=== PATIENT | female | born 1960 | race Two or more races ===

== ENCOUNTER → 2024-01-25 | Outpatient (CLI) | payer BC, SELFPAY ==
[2024-01-25 08:29] LABS: Basophils % (Auto) 1 % (0-2.5); Eosinophils # (Auto) 0.2 Thou/mm3 (0.0-0.5); Eosinophils % (Auto) 3 % (0-10); Hematocrit 40.8 % (36.0-46.0); Immature Granulocytes % (Auto) 0 % (0-0); Immature Granulocytes Auto 0.01 Thou/mm3 (0.00-0.00); Lymphocytes # (Auto) 1.5 Thou/mm3 (1.0-4.8); Lymphocytes % (Auto) 25 % (10-50); Mean Corpuscular HGB Conc 34.3 g/dl (31.0-37.0); Mean Corpuscular Hemoglobin 31.6 pg (25.0-35.0); Mean Corpuscular Volume 92 fL (80-100); Monocytes # (Auto) 0.3 Thou/mm3 (0.0-0.8); Monocytes % (Auto) 6 % (0-12); Neutrophils # (Auto) 3.9 Thou/mm3 (1.8-7.7); Neutrophils % (Auto) 66 % (37-80); Nucleated Red Blood Cell % 0 /100 WBC (0); Platelet Count 226 Thou/mm3 (140-440); RDW Standard Deviation 42.5 fL (36.4-46.3); Red Blood Count 4.43 Miln/mm3 (4.00-5.20)
[2024-01-25 08:42] LABS: Glucose Estimated Average 108 mg/dL (80-131); Hemoglobin A1C 5.4 % Hgb (4.8-6.0)
[2024-01-25 08:45] LABS: Alanine Aminotransferase 31 U/L (10-49); Albumin, Serum 4.6 gm/dL (3.4-4.8); Albumin/Globulin Ratio 1.8 (1.2-2.2); Alkaline Phosphatase 117 U/L (46-116); Anion Gap 7 (7-16); Aspartate Amino Transferase 29 U/L (0-34); BUN/Creatinine Ratio 14 Ratio (12-20); Blood Urea Nitrogen 10 mg/dL (9-23); Calcium 9.4 mg/dL (8.3-10.6); Calcium (Corrected) 9.4 mg/dL (8.5-10.1); Carbon Dioxide 30.9 mMol/L (20.0-31.0); Cardiac Risk Estimate 2.5 RATIO (3.7-5.6); Chloride 104 mMol/L (98-107); Cholesterol 159 mg/dL (132-200); Creatinine (Component) 0.7 mg/dL (0.6-1.3); Globulin 2.5 gm/dL (2.3-3.5); Glucose 121 mg/dL (74-106); HDL Cholesterol 63 mg/dL (40-60); LDL Cholesterol,Calculated 76 mg/dL (0-130); Magnesium 2.1 mg/dL (1.6-2.6); Osmolality,Calculated 283 (275-295); Phosphorous 2.8 mg/dL (2.4-5.1); Potassium 3.4 mMol/L (3.4-5.1); Sodium 142 mMol/L (136-145); Thyroid Stimulating Hormone 4.95 uIU/mL (0.55-4.78); Total Protein 7.1 gm/dL (5.7-8.2); Triglycerides 98 mg/dL (30-150); eGFR > 60 See Note
[2024-01-25 08:50] LABS: Vitamin B12 274 pg/mL (211-911)
[2024-01-29 06:47] LABS: T3,Total* 122 ng/dL (76-181)
--- NOTE | 2024-02-03 17:46 | ESPR_ITS ---
RE: CHARU LOBATO : 1960 DATE OF SERVICE: 02/03/2024 CARDIOLOGY PROGRESS NOTE: SUBJECTIVE: The patient is a 79-year-old lady admitted to the hospital with severe chest pain, acute quj-[id number] elevation myocardial infarction, troponin elevation. No EKG changes. She is feeling better on IV heparin, aspirin, and Plavix. Not having any chest pain or shortness of breath today. OBJECTIVE: Vital Signs: Blood pressure 106/55 and pulse 67. Neck: Supple. No JVD. Chest: Symmetrical. Lungs: Decreased breath sounds. No rales. Heart: S1 and S2, regular. No gallops heard. Abdomen: Thin and soft. Extremities: edema [employer] O[employer]ATOR normal IMPRESSION: The patient has acute qny-JY-vqxdfih elevation myocardial infarction. RECOMMENDATIONS: 1. Continue aspirin, Plavix, and heparin. Scheduled for coronary angiogram tomorrow. Also continue statin therapy. 2. Blood pressure on the low size hence beta-[place] and HA inhibitors are given. 3. History of hypothyroidism, now on Synthroid 75 mcg daily. 4. Diabetes mellitus, on insulin. DT: 15:09:41 TT: 17:08:00 Ref: [id number] - TID: [id number] MTDD
== END | disposition home or self-care (01) ==
LOC: COPL 07:32
PROVIDERS: PCP Internal Medicine; Referring Provider Internal Medicine; Visit Provider Internal Medicine
DX: I10 Essential (primary) hypertension (principal); R53.83 Other fatigue; E66.01 Morbid (severe) obesity due to excess calories
CPT/HCPCS: 36415; 80053; 80061; 82306; 82607; 83036; 83735; 84100; 84443; 84480; 85025

== ENCOUNTER → 2024-11-14 | Outpatient (CLI) | payer BC, SELFPAY ==
[2024-11-14 17:17] LABS: Basophils # (Auto) 0.0 Thou/mm3 (0.0-0.2); Basophils % (Auto) 0 % (0-2.5); Eosinophils # (Auto) 0.2 Thou/mm3 (0.0-0.5); Eosinophils % (Auto) 3 % (0-10); Hematocrit 37.0 % (36.0-46.0); Hemoglobin 12.2 g/dL (12.0-16.0); Immature Granulocytes Auto 0.03 Thou/mm3 (0.00-0.00); Lymphocytes # (Auto) 1.5 Thou/mm3 (1.0-4.8); Lymphocytes % (Auto) 21 % (10-50); Mean Corpuscular HGB Conc 33.0 g/dl (31.0-37.0); Mean Corpuscular Hemoglobin 30.7 pg (25.0-35.0); Mean Corpuscular Volume 93 fL (80-100); Monocytes # (Auto) 0.5 Thou/mm3 (0.0-0.8); Monocytes % (Auto) 7 % (0-12); Neutrophils # (Auto) 4.7 Thou/mm3 (1.8-7.7); Neutrophils % (Auto) 68 % (37-80); Nucleated Red Blood Cell # 0.00 Thou/mm3 (0.00-0.00); Nucleated Red Blood Cell % 0 /100 WBC (0); Platelet Count 247 Thou/mm3 (140-440); RDW Standard Deviation 44.0 fL (36.4-46.3); Red Blood Count 3.97 Miln/mm3 (4.00-5.20); White Blood Count 6.9 Thou/mm3 (3.6-11.0)
[2024-11-14 17:18] LABS: Alanine Aminotransferase 14 U/L (10-49); Albumin, Serum 4.2 gm/dL (3.4-4.8); Albumin/Globulin Ratio 1.6 (1.2-2.2); Alkaline Phosphatase 121 U/L (46-116); Anion Gap 10 (7-16); Aspartate Amino Transferase 22 U/L (0-34); BUN/Creatinine Ratio 13 Ratio (12-20); Bilirubin,Total 0.4 mg/dL (0.3-1.2); Blood Urea Nitrogen 13 mg/dL (9-23); Calcium 9.0 mg/dL (8.3-10.6); Calcium (Corrected) 9.0 mg/dL (8.5-10.1); Carbon Dioxide 29.4 mMol/L (20.0-31.0); Cardiac Risk Estimate 2.9 RATIO (3.7-5.6); Chloride 106 mMol/L (98-107); Cholesterol 158 mg/dL (132-200); Creatinine (Component) 1.0 mg/dL (0.6-1.3); Globulin 2.6 gm/dL (2.3-3.5); Glucose 94 mg/dL (74-106); HDL Cholesterol 54 mg/dL (40-60); LDL Cholesterol,Calculated 70 mg/dL (0-130); Osmolality,Calculated 288 (275-295); Potassium 3.4 mMol/L (3.4-5.1); Sodium 145 mMol/L (136-145); Total Protein 6.8 gm/dL (5.7-8.2); Triglycerides 171 mg/dL (30-150); eGFR > 60 See Note
[2024-11-14 17:20] LABS: Vitamin B12 338 pg/mL (211-911); Vitamin D 25 Hydroxy Total 18.4 ng/mL (7.3-40.2)
[2024-11-20 06:36] LABS: T3,Total* 101 ng/dL (76-181)
== END | disposition home or self-care (01) ==
LOC: COPL 16:23
PROVIDERS: PCP Internal Medicine; Referring Provider Internal Medicine; Visit Provider Internal Medicine
DX: I10 Essential (primary) hypertension (principal); R53.83 Other fatigue
CPT/HCPCS: 36415; 80053; 80061; 82306; 82607; 84480; 85025